=== PATIENT | female | born 1975 | race Caucasian/White ===

== ENCOUNTER 2023-05-12 12:04 | Emergency (ER) | payer BC ==
[~2023-05-12] VITALS: Ht 152.4 cm; Wt 91.2 kg
[2023-05-12 12:08] VITALS: BP_SYST 146; PULSE 86; RESP 18; TEMP 97.8; O2SAT 97
[2023-05-12] MEDS ORDERED: MORPHINE 4 MG INJ. 4 MG/ML VIAL IM ONE ×2 (13:00→14:30)
[2023-05-12] MEDS ORDERED: NAPR-690 PO (15:32)
[2023-05-12 15:53] VITALS: BP_SYST 135; PULSE 74; RESP 18; TEMP 97.3; O2SAT 97
== END 2023-05-12 15:55 | disposition home or self-care (01) ==
LOC: SED 12:04
DX: M54.31 Sciatica, right side (principal); M25.551 Pain in right hip; E11.9 Type 2 diabetes mellitus without complications; I10 Essential (primary) hypertension; Z79.899 Other long term (current) drug therapy
CPT/HCPCS: 99285; 72131; 93971; 76376; 96372; J2270